=== PATIENT | male | born 1955 | race Caucasian/White ===

== ENCOUNTER → 2018-12-07 09:34 | Outpatient (CLI) | payer OTHER, SELFPAY ==
[2018-12-07 10:53] LABS: Anion Gap 5 (5-15); BUN 25 mg/dL (7-18); BUN/Creat Ratio 24.5 RATIO (10-20); Chloride 107 mmol/L (98-107); Cholesterol 196 mg/dL (200); Creatinine, Serum 1.02 mg/dL (0.70-1.30); EST Glomerular Filtration Rate 79 mL/min (>60); Est Glom Filt Rate - Afr Amer 96 mL/min (>60); Glucose 79 mg/dL (74-106); High Density Lipoprotein 70 mg/dL; PSA,Total - Annual Screen 1.37 ng/mL (0.00-4.00); Potassium 4.4 mmol/L (3.5-5.1); Sodium Level 140 mmol/L (136-145); Triglycerides 95 mg/dL; Uric Acid 6.8 mg/dL (3.5-7.2); Very Low Density Lipoprotein 19 mg/dL (5-40)
== END ==
PROVIDERS: Family Provider Family Medicine; PCP Family Medicine; Referring Provider Family Medicine; Visit Provider Family Medicine
DX: I10 Essential (primary) hypertension (principal); M10.00 Idiopathic gout, unspecified site; Z12.5 Encounter for screening for malignant neoplasm of prostate
CPT/HCPCS: 36415; 80048; 80061; 84153; 84550; G0103

== ENCOUNTER → 2020-01-30 07:56 | Outpatient (CLI) | payer OTHER, SELFPAY ==
[2020-01-30 08:51] LABS: Anion Gap 3 (5-15); BUN 14 mg/dL (7-18); Calcium,Total 9.4 mg/dL (8.5-10.1); Chloride 106 mmol/L (98-107); Cholesterol 202 mg/dL (200); Creatinine, Serum 1.08 mg/dL (0.70-1.30); EST Glomerular Filtration Rate 74 mL/min (>60); Est Glom Filt Rate - Afr Amer 89 mL/min (>60); Glucose 90 mg/dL (74-106); High Density Lipoprotein 63 mg/dL; PSA,Total - Annual Screen 1.38 ng/mL (0.00-4.00); Sodium Level 139 mmol/L (136-145); Triglycerides 104 mg/dL; Uric Acid 6.9 mg/dL (3.5-7.2); Very Low Density Lipoprotein 21 mg/dL (5-40)
== END ==
PROVIDERS: PCP Family Medicine; Referring Provider Family Medicine; Visit Provider Family Medicine
DX: I10 Essential (primary) hypertension (principal); N40.1 Benign prostatic hyperplasia with lower urinary tract symptoms; M10.00 Idiopathic gout, unspecified site
CPT/HCPCS: 36415; 80048; 80061; 84153; 84550; G0103

== ENCOUNTER → 2021-04-13 08:34 | Outpatient (CLI) | payer OTHER, SELFPAY ==
[2021-04-13 10:32] LABS: ALB/GLOB Ratio 1.1 RATIO (0.9-2.4); AST(SGOT) 19 U/L (15-37); Alanine Aminotransfer ALT/SGPT 33 U/L (16-61); Albumin, Serum 3.8 g/dL (3.2-5.0); Alkaline Phosphatase 75 U/L (45-117); Anion Gap 8 (5-15); BUN 21 mg/dL (7-18); BUN/Creat Ratio 19.3 RATIO (10-20); Calcium,Total 9.1 mg/dL (8.5-10.1); Chloride 104 mmol/L (98-107); Cholesterol 172 mg/dL (200); Creatinine, Serum 1.09 mg/dL (0.70-1.30); EST Glomerular Filtration Rate 73 mL/min (>60); Est Glom Filt Rate - Afr Amer 88 mL/min (>60); Globulin 3.6 g/dL (2.2-4.2); Glucose 92 mg/dL (74-106); High Density Lipoprotein 60 mg/dL; PSA,Total - Annual Screen 2.08 ng/mL (0.00-4.00); Potassium 4.1 mmol/L (3.5-5.1); Protein, Total 7.4 g/dL (6.4-8.2); Sodium Level 139 mmol/L (136-145); Triglycerides 95 mg/dL; Uric Acid 5.8 mg/dL (3.5-7.2); Very Low Density Lipoprotein 19 mg/dL (5-40)
== END ==
PROVIDERS: PCP Family Medicine; Referring Provider Family Medicine; Visit Provider Family Medicine
DX: I10 Essential (primary) hypertension (principal); N40.1 Benign prostatic hyperplasia with lower urinary tract symptoms; M10.00 Idiopathic gout, unspecified site
CPT/HCPCS: 36415; 80053; 80061; 84153; 84550; G0103

== ENCOUNTER 2021-06-07 16:15 | Outpatient (CLI) | payer OTHER, SELFPAY ==
[2021-06-07 17:44] LABS: Absolute Lymphocyte Count 2.13 X10^3/uL (0.83-4.51); Absolute Neutrophil Count 4.2 X10^3/uL (2.0-7.7); Basophil# 0.09 X10^3/uL; Basophil% 1.2 % (0-1); Eosinophil# 0.11 X10^3/uL; Eosinophils% 1.5 % (0-5); Hematocrit 42.9 % (40-54); Hemoglobin 13.8 g/dL (13.0-16.5); Lymphocyte # 2.13 X10^3/ul (0.83-4.51); Lymphocyte % 29.4 % (19-41); Mean Corp Hgb Conc 32.2 g/dL (32-36); Mean Corpuscular Hgb 28.1 pg (27.0-32.0); Mean Corpuscular Volume 87.4 fL (80-94); Mean Platelet Vol. 9.4 fl (6.2-12.0); Monocyte# 0.75 X10^3/uL; Monocyte% 10.4 % (0-10); NRBC Flagged by Analyzer 0 % (0-5); Neutrophil # 4.15 X10^3/uL (2.7-7.7); Neutrophil % 57.4 % (47-70); Platelet Count 334 K/mm3 (150-450); RBC Distribution Width CV 13.9 % (11.6-14.6); RBC Distribution Width SD 44.5 fl (35.1-43.9); Red Blood Count 4.91 M/mm3 (4.6-6.2); White Blood Count 7.2 K/mm3 (4.4-11.0)
[2021-06-07 18:04] LABS: Erythrocyte Sedimentation Rate 35 mm/hr (0-20)
[2021-06-07 18:23] LABS: BUN 17 mg/dL (7-18); BUN/Creat Ratio 19.2 RATIO (10-20); Calcium,Total 9.2 mg/dL (8.5-10.1); Creatinine, Serum 0.88 mg/dL (0.70-1.30); EST Glomerular Filtration Rate 92 mL/min (>60); Est Glom Filt Rate - Afr Amer 112 mL/min (>60); Glucose 99 mg/dL (74-106)
[2021-06-07 18:24] LABS: Anion Gap 8 (5-15); CRP 7.85 mg/L (0.0-3.0); Chloride 102 mmol/L (98-107); Potassium 3.8 mmol/L (3.5-5.1); Sodium Level 137 mmol/L (136-145)
== END 2021-06-07 23:59 | disposition home or self-care (01) ==
PROVIDERS: PCP Family Medicine; Referring Provider Family Medicine; Visit Provider Family Medicine
DX: L97.909 Non-pressure chronic ulcer of unspecified part of unspecified lower leg with unspecified severity (principal)
CPT/HCPCS: 36415; 80048; 85025; 85652; 86140; 86900; 86901; 87070; 87077; 87186; 87205

== ENCOUNTER 2021-07-14 09:00 | Outpatient (RCR) | payer OTHER, SELFPAY ==
[2021-06-23 08:19] VITALS: BP 132/79; PULSE 94; TEMP 35.8
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
[2021-06-30 08:28] VITALS: BP 154/86; PULSE 98; TEMP 36.4
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
[2021-07-07 08:26] VITALS: BP 149/79; PULSE 91; TEMP 36.1
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
[2021-07-14 09:07] VITALS: BP 155/75; PULSE 92; TEMP 36.1
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
== END 2021-07-14 23:59 | disposition home or self-care (01) ==
LOC: WC 09:00
PROVIDERS: PCP Family Medicine; Visit Provider Student in an Organized Health Care Education/Training Program
DX: I87.2 Venous insufficiency (chronic) (peripheral) (principal); L97.212 Non-pressure chronic ulcer of right calf with fat layer exposed
CPT/HCPCS: 11042; 99213; G0463

== ENCOUNTER 2021-08-11 09:15 | Outpatient (RCR) | payer OTHER, SELFPAY ==
[2021-07-15 00:12] VITALS: BP 155/75; PULSE 92; TEMP 36.1
[2021-07-21 09:28] VITALS: BP 141/98; PULSE 101; TEMP 36.3
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
[2021-07-28 09:24] VITALS: BP 147/90; PULSE 109; TEMP 36.1
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
[2021-08-04 09:22] VITALS: BP 128/87; PULSE 78; TEMP 36
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
[2021-08-11 09:12] VITALS: BP 143/80; PULSE 92; TEMP 36
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
== END 2021-08-13 23:59 | disposition home or self-care (01) ==
LOC: WC 09:15
PROVIDERS: PCP Family Medicine; Visit Provider Student in an Organized Health Care Education/Training Program
DX: L97.212 Non-pressure chronic ulcer of right calf with fat layer exposed (principal); I87.2 Venous insufficiency (chronic) (peripheral); S81.801S Unspecified open wound, right lower leg, sequela; W01.198S Fall on same level from slipping, tripping and stumbling with subsequent striking against other object, sequela
CPT/HCPCS: 11042

== ENCOUNTER 2021-09-08 10:00 | Outpatient (RCR) | payer OTHER, SELFPAY ==
[2021-08-14 00:16] VITALS: BP 143/80; PULSE 92; TEMP 36
[2021-08-18 09:28] VITALS: BP 139/97; PULSE 92; TEMP 36.6
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
[2021-08-25 09:38] VITALS: BP 114/67; PULSE 71; TEMP 36.6
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
[2021-09-01 09:38] VITALS: BP 130/65; PULSE 88; RESP 18; TEMP 36.1
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
[2021-09-08 10:02] VITALS: BP 130/76; PULSE 777; TEMP 36.3
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
== END 2021-09-13 23:59 | disposition home or self-care (01) ==
LOC: WC 10:00
PROVIDERS: PCP Family Medicine; Visit Provider Student in an Organized Health Care Education/Training Program
DX: I87.2 Venous insufficiency (chronic) (peripheral) (principal); L97.212 Non-pressure chronic ulcer of right calf with fat layer exposed; S89.91XS Unspecified injury of right lower leg, sequela; W19.XXXS Unspecified fall, sequela
CPT/HCPCS: 11042

== ENCOUNTER 2021-10-13 10:00 | Outpatient (RCR) | payer OTHER, SELFPAY ==
[2021-09-14 00:29] VITALS: BP 130/76; PULSE 777; RESP 18; TEMP 36.3
[2021-09-15 09:58] VITALS: BP 127/76; PULSE 100; RESP 18
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
[2021-09-22 10:10] VITALS: BP 127/90; PULSE 82; TEMP 35.7
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
[2021-09-29 10:00] VITALS: BP 135/87; PULSE 92; TEMP 36.1
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
[2021-10-13 09:58] VITALS: BP 141/74; PULSE 89; TEMP 36.1
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
== END 2021-10-13 23:59 | disposition home or self-care (01) ==
LOC: WC 10:00
PROVIDERS: PCP Family Medicine; Visit Provider Student in an Organized Health Care Education/Training Program
DX: L97.212 Non-pressure chronic ulcer of right calf with fat layer exposed (principal); I87.2 Venous insufficiency (chronic) (peripheral); S89.91XS Unspecified injury of right lower leg, sequela; W19.XXXS Unspecified fall, sequela; R60.0 Localized edema
CPT/HCPCS: 11042

== ENCOUNTER 2021-11-10 10:30 | Outpatient (RCR) | payer OTHER, SELFPAY ==
[2021-10-14 00:21] VITALS: BP 141/74; PULSE 89; RESP 18; TEMP 36.1
[2021-10-20 10:25] VITALS: BP 114/63; PULSE 92; TEMP 36.3
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
[2021-10-27 11:33] VITALS: BP 122/66; PULSE 89; TEMP 36.3
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
[2021-11-03 10:28] VITALS: BP 142/69; PULSE 78; TEMP 36.1
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
[2021-11-10 10:35] VITALS: BP 136/93; PULSE 89; RESP 18; TEMP 36
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
== END 2021-11-13 23:59 | disposition home or self-care (01) ==
LOC: WC 10:30
PROVIDERS: PCP Family Medicine; Visit Provider Student in an Organized Health Care Education/Training Program
DX: L97.212 Non-pressure chronic ulcer of right calf with fat layer exposed (principal); I87.2 Venous insufficiency (chronic) (peripheral); S89.91XS Unspecified injury of right lower leg, sequela; W19.XXXS Unspecified fall, sequela
CPT/HCPCS: 11042

== ENCOUNTER 2021-12-08 10:45 | Outpatient (RCR) | payer OTHER, SELFPAY ==
[2021-11-14 00:18] VITALS: BP 136/93; PULSE 89; RESP 18; TEMP 36
[2021-11-17 11:24] VITALS: BP 122/80; PULSE 76; TEMP 36.6
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
[2021-11-24 10:55] VITALS: BP 137/72; PULSE 104; TEMP 35.3
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
[2021-12-01 12:15] VITALS: BP 138/77; PULSE 101; TEMP 36.6
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
[2021-12-08 11:58] VITALS: BP 123/74; PULSE 96; RESP 18; TEMP 36.1
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
== END 2021-12-14 23:59 | disposition home or self-care (01) ==
LOC: WC 10:45
PROVIDERS: PCP Family Medicine; Visit Provider Student in an Organized Health Care Education/Training Program
DX: L97.212 Non-pressure chronic ulcer of right calf with fat layer exposed (principal); S89.91XS Unspecified injury of right lower leg, sequela; W19.XXXS Unspecified fall, sequela; I87.2 Venous insufficiency (chronic) (peripheral)
CPT/HCPCS: 11042

== ENCOUNTER 2022-01-12 10:45 | Outpatient (RCR) | payer OTHER, SELFPAY ==
[2021-12-15 00:22] VITALS: BP 123/74; PULSE 96; RESP 18; TEMP 36.1
[2021-12-15 11:15] VITALS: BP 131/78; PULSE 90; RESP 16; TEMP 36.2
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
[2021-12-22 11:34] VITALS: BP 127/63; PULSE 62; TEMP 35.6
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
[2021-12-29 11:22] VITALS: BP 132/74; PULSE 74; TEMP 36
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
[2022-01-05 11:00] VITALS: BP 133/91; PULSE 94; TEMP 35.8
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
[2022-01-12 11:13] VITALS: BP 124/82; PULSE 96; TEMP 35.8
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
== END 2022-01-13 23:59 | disposition home or self-care (01) ==
LOC: WC 10:45
PROVIDERS: PCP Family Medicine; Visit Provider Student in an Organized Health Care Education/Training Program
DX: L97.212 Non-pressure chronic ulcer of right calf with fat layer exposed (principal); I87.2 Venous insufficiency (chronic) (peripheral); S89.91XS Unspecified injury of right lower leg, sequela; W19.XXXS Unspecified fall, sequela; R60.0 Localized edema
CPT/HCPCS: 11042; Q4186

== ENCOUNTER 2022-01-26 11:07 | Outpatient (RCR) | payer OTHER, SELFPAY ==
[2022-01-14 00:57] VITALS: BP 124/82; PULSE 96; RESP 16; TEMP 35.8
[2022-01-26 12:04] VITALS: BP 124/85; PULSE 91; TEMP 35.7
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
== END 2022-02-13 23:59 | disposition home or self-care (01) ==
LOC: WC 11:07
PROVIDERS: PCP Family Medicine; Visit Provider Student in an Organized Health Care Education/Training Program
DX: L97.212 Non-pressure chronic ulcer of right calf with fat layer exposed (principal); I87.2 Venous insufficiency (chronic) (peripheral); S89.91XS Unspecified injury of right lower leg, sequela; W19.XXXS Unspecified fall, sequela
CPT/HCPCS: 11042

== ENCOUNTER 2022-02-16 11:00 | Outpatient (RCR) | payer OTHER, SELFPAY ==
[2022-02-14 00:21] VITALS: BP 124/85; PULSE 91; RESP 16; TEMP 35.7
[2022-02-16 11:02] VITALS: TEMP 36.3
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
== END 2022-02-16 13:46 | disposition home or self-care (01) ==
LOC: WC 11:00
PROVIDERS: PCP Family Medicine; Visit Provider Student in an Organized Health Care Education/Training Program
DX: Z09 Encounter for follow-up examination after completed treatment for conditions other than malignant neoplasm (principal); I87.2 Venous insufficiency (chronic) (peripheral)
CPT/HCPCS: 99213; G0463

== ENCOUNTER → 2022-02-17 | Outpatient (CLI) | payer OTHER, SELFPAY ==
[2022-02-17 10:25] LABS: ALB/GLOB Ratio 1.1 RATIO (0.9-2.4); AST(SGOT) 17 U/L (15-37); Alanine Aminotransfer ALT/SGPT 36 U/L (16-61); Alkaline Phosphatase 79 U/L (45-117); Anion Gap 6 (5-15); BUN 17 mg/dL (7-18); BUN/Creat Ratio 16.5 RATIO (10-20); Calcium,Total 9.5 mg/dL (8.5-10.1); Chloride 103 mmol/L (98-107); Cholesterol 200 mg/dL (200); Creatinine, Serum 1.03 mg/dL (0.70-1.30); EST Glomerular Filtration Rate 77 mL/min (>60); Est Glom Filt Rate - Afr Amer 93 mL/min (>60); Globulin 3.8 g/dL (2.2-4.2); Glucose 83 mg/dL (74-106); High Density Lipoprotein 75 mg/dL; Potassium 4.2 mmol/L (3.5-5.1); Protein, Total 7.8 g/dL (6.4-8.2); Sodium Level 139 mmol/L (136-145); Triglycerides 142 mg/dL; Uric Acid 6.8 mg/dL (3.5-7.2); Very Low Density Lipoprotein 28 mg/dL (5-40)
== END | disposition home or self-care (01) ==
LOC: LAB 09:11
PROVIDERS: PCP Family Medicine; Referring Provider Family Medicine; Visit Provider Family Medicine
DX: I10 Essential (primary) hypertension (principal); M10.00 Idiopathic gout, unspecified site; Z12.5 Encounter for screening for malignant neoplasm of prostate
CPT/HCPCS: 36415; 80053; 80061; 84550

== ENCOUNTER → 2023-06-06 | Outpatient (CLI) | payer MEDICARE, SELFPAY ==
--- OUTSIDE RECORDS SUMMARY | 2023-06-06 08:38 | XMS RPT_ITS | CCD ---
Author Name Unknown Address [address] [place] [address] [id number] [place] [address] Organization [facility] Care Team Providers Care Thickener Operator Name Role Phone Bk Moss Admitting Unavailable Newbill, Bk Lebron Attending Unavailable Sulove, Saksham Primary Care Unavailable Newbill, Bk Lebron Admitting Unavailable Newbill, Bk Lebron Attending Unavailable Sulove, Saksham Primary Care Unavailable Newbill, Bk Lebron Admitting Unavailable Newbill, Bk Lebron Attending Unavailable Sulove, Saksham Primary Care Unavailable Newbill, Bk Lebron Admitting Unavailable Newbill, Bk Lebron Attending Unavailable Sulove, Saksham Primary Care Unavailable KATHLEEN MEREDITH, ZEB Garcia Attending Unavailabl e KARLA BOATENG Primary Care Unavailabl e Encounters Encounter Date Encounter Type Care Provider Facility Start: 06-08-2022 End: 06-08-2022 ambulatory ZEB WANG II Facility:[facility] Start: 06-28-2018 End: 06-28-2018 Patient encounter procedure Bk Moss Facility:[facility] Start: 06-11-2018 End: 06-11-2018 Patient encounter procedure Bk Moss Facility:[facility] Start: 04-25-2018 End: 04-25-2018 Patient encounter procedure Bk Moss Facility:[facility] Start: 04-15-2018 End: 04-15-2018 Patient encounter procedure Bk Moss Facility:[facility] Payers Date Payer Category Payer Unknown [id number] 2018 Unknown 1955 Unknown [id number] [id number] 1955 Unknown [id number] 1955 Unknown [id number] [id number] 1955 Unknown [id number] [id number] [id number] Progress note 06-08-2022 Note Date & Type Note Facility 06-08-2022 Note HNO ID: [id number] Author: Zeb Wang II, OD Service: ? Author Type: TELEX OPERATOR Type: Progress Notes Filed: 06/08/2022 10:59 AM Note Text: Assessment and Plan H52.03 Hyperopia, bilateral (primary encounter diagnosis) H52.223 Regular astigmatism, bilateral H52.4 Presbyopia Comment: Recommend multifocal glasses to maximize visual performance. H25.813 Combined form of senile cataract of both eyes Comment: Mild cataract in both eyes. Well tolerated at this time. Discussed possible future affect on daily activities to watch for. Monitor as instructed. I have confirmed and edited as necessary the relevant ophthalmic history, ROS, and the neuro exam findings as obtained by others. I have seen and examined Lei Fong. I have discussed the case and the management of this patient's care with the Resident/Fellow, if applicable. I also have reviewed and agree with the assessment and plan as stated above and agree with all of its relevant components. Zeb Wang II, OD [facility] Summary Purpose Family History No Family History Records FoundNo Family History Records Found Advance Directives No Advanced Directives Records FoundNo Advanced Directives Records Found Additional Source Comments (unrecognized sect ion and content) No Status Records FoundNo Status Records Found INFORMATION SOURCE (unrecogn ized section and content) DATE CREATED AUTHOR AUTHOR'S ORGANIZ ATION 06/09/2022 [facility] FOR RECORDS PERTAINING TO PATIENTS WHO ARE OR HAVE BEEN ENROLLED IN A CHEMICAL DEPENDENCY/SUBSTANCEABUSE PROGRAM, SOME INFORMATION MAY BE OMITTED. This clinical summary was aggregated from multiple sources. Caution should be exercised in using it in the provision of clinical care. This summary normalizes information from multiple sources, and as a consequence, information in this document may materially change the coding, format and clinical context of patient data. In addition, data may be omitted in some cases. CLINICAL DECISIONS SHOULD BE BASED ON THE PRIMARY CLINICAL RECORDS. [facility] [employer] [facility]. provides no warranty or guarantee of the accuracy or completeness of information in this document.
[2023-06-06 10:05] LABS: ALB/GLOB Ratio 1.1 RATIO (0.9-2.4); AST(SGOT) 19 U/L (15-37); Alanine Aminotransfer ALT/SGPT 38 U/L (16-61); Albumin, Serum 3.9 g/dL (3.2-5.0); Alkaline Phosphatase 77 U/L (45-117); Anion Gap 6 (5-15); BUN 16 mg/dL (7-18); BUN/Creat Ratio 14.4 RATIO (10-20); Calcium,Total 9.6 mg/dL (8.5-10.1); Chloride 107 mmol/L (98-107); Cholesterol 225 mg/dL (200); Creatinine, Serum 1.11 mg/dL (0.70-1.30); EST Glomerular Filtration Rate 71 mL/min (>60); Est Glom Filt Rate - Afr Amer 85 mL/min (>60); Globulin 3.6 g/dL (2.2-4.2); Glucose 98 mg/dL (74-106); High Density Lipoprotein 59 mg/dL; PSA,Total - Annual Screen 2.12 ng/mL (0.00-4.00); Protein, Total 7.5 g/dL (6.4-8.2); Sodium Level 139 mmol/L (136-145); Triglycerides 118 mg/dL; Uric Acid 6.2 mg/dL (3.5-7.2); Very Low Density Lipoprotein 24 mg/dL (5-40)
== END | disposition home or self-care (01) ==
PROVIDERS: PCP Family Medicine; Referring Provider Family Medicine; Visit Provider Family Medicine
DX: I10 Essential (primary) hypertension (principal); M10.00 Idiopathic gout, unspecified site; Z12.5 Encounter for screening for malignant neoplasm of prostate
CPT/HCPCS: 36415; 80053; 80061; 84153; 84550; G0103

== ENCOUNTER → 2023-06-29 | Outpatient (CLI) | payer MEDICARE, SELFPAY ==
--- NOTE | 2023-06-29 08:46 | AAAS_ITS ---
Reason For Study: AAA screening Aorta Measurements Aorta Doppler Measurements Proximal aorta measures1.81 x 1.81cm. in cross- Peak systolic flow velocities within the proximal sectional axis. aorta measure 90.4 cm/sec. Proximal aorta measures1.79cm. in longitudinal Peak systolic flow velocities within the mid aorta axis. measure 110.4 cm/sec. Mid aorta measures1.71 x 1.73cm. in cross- Peak systolic flow velocities within the distal sectional axis. aorta measure 110.4 cm/sec. Mid aorta measures1.59cm. in longitudinal axis. Distal aorta measures1.65 x 1.61cm. in cross- sectional axis. Distal aorta measures1.61cm. in longitudinal axis. Left Iliac Artery Left iliac artery measures 1.51 x 1.55 cm. in the cross-sectional axis. Left iliac artery measures 1.38 cm. in the longitudinal axis. Peak systolic velocity in the left iliac artery measures 112.2 cm/sec. Right Iliac Artery Right iliac artery measures 1.19 x 1.19 cm. in the cross-sectional axis. Right iliac artery measures 1.20 cm. in the longitudinal axis. Peak systolic velocity in the right iliac artery measures 101.3 cm/sec. Procedure Aorta IVC Iliac vasculature or bypass grafts [id number]. Exam performed in department. VL/AAA Screening Interpretation Summary No evidence for abdominal aortic aneurysm with maximum aortic dimension approxi mately 1.81 x 1.81 cm in diameter Left common iliac artery normal at 1.51 x 1.55 cm in diameter Right common iliac artery normal at 1.19 x 1.19 cm in diameter Minimally elevated flow velocity in the abdominal aorta at 110 cm/s peak systol ic flow likely not of clinical significance. Ordering Physician: Franky Borja Referring Physician: Franky Borja Performed By: Jamila Lucio RVT
--- OUTSIDE RECORDS SUMMARY | 2023-06-29 09:05 | XMS RPT_ITS | CCD ---
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 Name Role Phone Bk Moss Admitting Unavailable [...] 06-08-2022 End: 06-08-2022 ambulatory ZEB WANG II Facility:[facility] Start: 06-28-2018 End: 06-28-2018 Patient encounter procedure Bk Moss Facility:[facility] Start: 06-11-2018 End: 06-11-2018 Patient encounter procedure Bk Moss Facility:[facility] Start: 04-25-2018 End: 04-25-2018 Patient encounter procedure Bk Moss Facility:[facility] Start: 04-15-2018 End: 04-15-2018 Patient encounter procedure Bk Moss Facility:[facility] Payers Date Payer Category Payer Unknown [id number] 2018 Unknown 1955 Unknown [id number] 1955 Unknown [id number] [id number] [id number] 1955 Unknown [id number] [id number] [id number] 1955 Unknown [id number] [id number] [id number] Progress note 06-08-2022 Note Date & Type Note Facility 06-08-2022 Note HNO ID: [id number] Author: Zeb Wang II, OD Service: ? Author Type: FINISHER SCREWDOWN Type: Progress Notes Filed: 06/08/2022 10:59 AM [...] its relevant components. Zeb Wang II, OD [facility] Summary Purpose Family History No Family History Records FoundNo Family History Records Found Advance Directives No Advanced Directives Records FoundNo Advanced Directives Records Found Additional Source Comments (unrecognized sect ion and content) No Status Records FoundNo Status Records Found INFORMATION SOURCE (unrecogn ized section and content) DATE CREATED AUTHOR AUTHOR'S ORGANIZ ATION 06/09/2022 [facility] FOR RECORDS PERTAINING TO PATIENTS WHO ARE [...] BE BASED ON THE PRIMARY CLINICAL RECORDS. [facility] [employer] [facility]. provides no warranty or guarantee of the accuracy or completeness of information in this document.
== END | disposition home or self-care (01) ==
LOC: CVS 08:44
PROVIDERS: PCP Family Medicine; Referring Provider Family Medicine; Visit Provider Family Medicine
DX: Z13.6 Encounter for screening for cardiovascular disorders (principal)
CPT/HCPCS: 76706

== ENCOUNTER → 2023-10-20 | Outpatient (CLI) | payer MEDICARE, SELFPAY ==
[2023-10-20 11:28] LABS: ALB/GLOB Ratio 1.2 RATIO (0.9-2.4); AST(SGOT) 18 U/L (15-37); Alanine Aminotransfer ALT/SGPT 44 U/L (16-61); Alkaline Phosphatase 83 U/L (45-117); Anion Gap 6 (5-15); BUN 17 mg/dL (7-18); BUN/Creat Ratio 17.3 RATIO (10-20); Calcium,Total 10.1 mg/dL (8.5-10.1); Chloride 107 mmol/L (98-107); Cholesterol 154 mg/dL (200); Creatinine, Serum 0.98 mg/dL (0.70-1.30); EST Glomerular Filtration Rate 81 mL/min (>60); Est Glom Filt Rate - Afr Amer 98 mL/min (>60); Globulin 3.4 g/dL (2.2-4.2); Glucose 92 mg/dL (74-106); High Density Lipoprotein 66 mg/dL; Potassium 4.1 mmol/L (3.5-5.1); Protein, Total 7.4 g/dL (6.4-8.2); Sodium Level 140 mmol/L (136-145); Triglycerides 102 mg/dL; Very Low Density Lipoprotein 20 mg/dL (5-40)
== END | disposition home or self-care (01) ==
LOC: LAB 10:36
PROVIDERS: PCP Family Medicine; Referring Provider Family Medicine; Visit Provider Family Medicine
DX: E78.00 Pure hypercholesterolemia, unspecified (principal)
CPT/HCPCS: 36415; 80053; 80061

== ENCOUNTER → 2024-11-26 | Outpatient (CLI) | payer MEDICARE, SELFPAY ==
[2024-11-26 16:29] LABS: Anion Gap 15 (5-15); BUN 16 mg/dL (4-19); BUN/Creat Ratio 16.9 RATIO (10-20); Calcium,Total 9.8 mg/dL (7.6-11.0); Carbon Dioxide 22.6 mmol/L (21.0-32.0); Chloride 104 mmol/L (98-108); Cholesterol 204 mg/dL (<=200); Glucose 96 mg/dL (70-99); Low Density Lipoprotein Calc. 117 mg/dL; PSA,Total - Annual Screen 2.47 ng/mL (0.02-4.00); Potassium 3.7 mmol/L (3.3-5.1); Triglycerides 65 mg/dL; Uric Acid 5.8 mg/dL (3.5-7.2); Very Low Density Lipoprotein 13 mg/dL (5-40); cholesterol:hdl ratio screen 2.76
== END | disposition home or self-care (01) ==
PROVIDERS: PCP Family Medicine; Referring Provider Family Medicine; Visit Provider Family Medicine
DX: I10 Essential (primary) hypertension (principal); M10.00 Idiopathic gout, unspecified site; N40.1 Benign prostatic hyperplasia with lower urinary tract symptoms; Z12.5 Encounter for screening for malignant neoplasm of prostate
CPT/HCPCS: 36415; 80048; 80061; 84153; 84550; G0103